=== PATIENT | male | born 1950 | race American Indian/Alaskan Native ===

== ENCOUNTER → 2024-07-14 | Outpatient (CLI) | payer MEDICARE, SELFPAY ==
--- NOTE | 2024-07-14 09:00 | XR_ITS ---
Examination: MRI cervical spine without intravenous contrast Date and time of exam: July 14, 2024 0900 hrs. Indications: Diagnosis spinal stenosis, neck pain radiating to the right elbow Technique: Multiple axial and sagittal sections of the cervical spine to been obtained. T2 weighted sagittal sections, TR 3, 270, TE 117 T1-weighted sagittal sections, TR 500, TE 11 T1-weighted axial sections, TR 607, TE 12, axial sections TR 18, TE 27 and T2 weighted transverse sections, TR 3920, TE 122. Findings: Adequate alignment cervical vertebral bodies No cervical fracture Mild disc narrowing C5-C6, C6-C7 Diffuse cervical disc desiccation Moderate cervical spondylosis No localized enlargement cervical cord C2-C3 no disc protrusion C3-C4 right uncinate process hypertrophy producing advanced right neural foraminal stenosis C4-C5 right uncinate process hypertrophy producing advanced right neural foraminal stenosis C5-C6 4 mm central subarticular osteophyte disc complex, indenting the ventral right margin cervical cord with advanced bilateral neural foraminal stenosis C6-C7 2 mm central subarticular osteophyte disc complex, moderate bilateral neural foraminal stenosis C7-T1 no disc protrusion Impression: C3-C4, C4-C5 advanced right neural foraminal stenosis C5-C6 4 mm central subarticular osteophyte disc complex, indenting the ventral right margin cervical cord with advanced bilateral neural foraminal stenosis C6-C7 moderate bilateral neural foraminal stenosis
== END | disposition home or self-care (01) ==
LOC: SMRI 08:49
PROVIDERS: Referring Provider Psychiatry & Neurology Neurology; Visit Provider Psychiatry & Neurology Neurology
DX: M48.02 Spinal stenosis, cervical region (principal); M25.78 Osteophyte, vertebrae
CPT/HCPCS: 72141

== ENCOUNTER → 2024-09-21 | Outpatient (CLI) | payer MEDICARE, SELFPAY ==
--- NOTE | 2024-09-21 | XR_ITS ---
Examination: Cervical spine 3 views TECHNIQUE: AP lateral coned AP odontoid cervical spine 3 views Exam date and time: September 21, 2024 1134 hours Comparison March 21, 2024 INDICATIONS: Postop cervical spine surgery September 10, 2024 FINDINGS: Status post cervical fusion C4-C7 with satisfactory alignment The anterior cervical plate is from the C4 vertebral body anteriorly 7 mm, clinical correlation advised No cervical fracture IMPRESSION: Status post cervical fusion C4-C7 with satisfactory alignment Anterior cervical plate is from the C4 vertebral body anteriorly 7 mm, clinical correlation advised
== END | disposition home or self-care (01) ==
LOC: CDIM 11:00
PROVIDERS: PCP Family Medicine; Referring Provider Orthopaedic Surgery; Visit Provider Orthopaedic Surgery
DX: M43.22 Fusion of spine, cervical region (principal); Z98.890 Other specified postprocedural states
CPT/HCPCS: 72040

== ENCOUNTER → 2024-11-05 | Outpatient (CLI) | payer MEDICARE, SELFPAY ==
--- NOTE | 2024-11-05 10:30 | XR_ITS ---
Examination: Cervical spine 3 views TECHNIQUE: AP lateral coned AP odontoid cervical spine 3 views Date and time: November 05, 2024 1115 hours Comparison September 21, 2024 INDICATIONS: Neck surgery postop 30 day follow-up FINDINGS: Cervical fusion C4-C7 with satisfactory alignment Stable position of cervical plate, 7 mm separation at the upper margin of the cervical plate relative to the anterior body of C4 No cervical fracture Intact odontoid IMPRESSION: Cervical fusion C4-C7 with anatomic alignment
== END | disposition home or self-care (01) ==
LOC: CDIM 10:22
PROVIDERS: PCP Family Medicine; Referring Provider Orthopaedic Surgery; Visit Provider Orthopaedic Surgery
DX: M50.30 Other cervical disc degeneration, unspecified cervical region (principal)
CPT/HCPCS: 72040

== ENCOUNTER → 2025-03-13 | Outpatient (CLI) | payer MEDICARE, SELFPAY ==
--- NOTE | 2025-03-13 10:38 | XR_ITS ---
EXAMINATION: Cervical spine 3 views TECHNIQUE: AP lateral coned AP odontoid cervical spine 3 views Date and time: March 13 2025, 11:03 a.m., comparison November 05, 2024 INDICATIONS: Neck pain years, status post cervical spine surgery October 2024 FINDINGS: Status post cervical fusion C4-C7 with anatomic alignment Anterior cervical plate is noted, distance between the anterior margin of C4 and the cervical plate 8 mm No cervical fracture Intact odontoid IMPRESSION: Cervical fusion C4-C7 with anatomic alignment
== END | disposition home or self-care (01) ==
LOC: CDIM 10:08
PROVIDERS: PCP Family Medicine; Referring Provider Orthopaedic Surgery; Visit Provider Orthopaedic Surgery
DX: M43.22 Fusion of spine, cervical region (principal)
CPT/HCPCS: 72040